=== PATIENT | female | born 1960 | race Caucasian/White ===

== ENCOUNTER 2017-12-09 06:28 | Day surgery (SDC) | payer OTHER ==
[2017-12-09] MEDS ORDERED: fentaNYL 100 MCG/2 ML SDV ONE (07:20)
[2017-12-09] MEDS ORDERED: Midazolam 1 MG/ML 2 ML SDV ONE (07:20)
[2017-12-09] MEDS ORDERED: Propofol 200 MG/20 ML SDV ONE (07:21)
[2017-12-09] MEDS: Lactated Ringers 1,000 ML IV SCH (07:21)
[2017-12-09 09:11] VITALS: BP 116/78
--- NOTE | 2017-12-09 16:08 | OR ---
DATE OF PROCEDURE: 12/09/2017 PROCEDURE: Colonoscopy. FINDINGS: Normal colonoscopy. PREOPERATIVE DIAGNOSIS: Screening colonoscopy. POSTOPERATIVE DIAGNOSIS: Screening colonoscopy. RISKS: Risks, benefits, alternatives, and limitations including, but not limited to infection, bleeding, and perforation were explained to the patient, and she wished to proceed. PROCEDURE IN DETAIL: The patient was placed in the left lateral decubitus position. Digital rectal exam was performed without abnormality. A very mild external hemorrhoid was noted. The scope was introduced and advanced atraumatically to the ileocecal valve. The scope was brought back through the ascending, transverse, descending colon, and retroflexed. No evidence of old or new blood. No masses. No polyps. No diverticulosis. No colitis. No abnormalities on retroflex. The patient's prep was acceptable, seeing approximately 90% of the luminal surface. The patient tolerated the procedure well. Clarence Simons MD /[id number]
== END 2017-12-09 09:05 | disposition home or self-care (01) ==
LOC: JP.SDS 06:28
PROVIDERS: ATTEND Surgery
DX: Z12.11 Encounter for screening for malignant neoplasm of colon (principal); K64.4 Residual hemorrhoidal skin tags; I34.1 Nonrheumatic mitral (valve) prolapse; I10 Essential (primary) hypertension; F41.9 Anxiety disorder, unspecified; E04.9 Nontoxic goiter, unspecified; E66.9 Obesity, unspecified; Z88.2 Allergy status to sulfonamides; Z88.5 Allergy status to narcotic agent; Z98.1 Arthrodesis status
CPT/HCPCS: J2250; J2704; J3010; J7120

== ENCOUNTER 2018-01-05 11:16 | Emergency (ER) | payer OTHER ==
[2018-01-05 12:30] VITALS: BP 147/77
--- NOTE | 2018-01-05 13:17 | EDM.PDOC ---
ED HPI GENERAL MEDICAL PROBLEM - General Chief Complaint: Lower Extremity Injury/Pain Stated Complaint: DVT DIAGNOSED ON , ISSUES Time Seen by Provider: 01/05/18 12:34 Source of Information: Reports: Patient History Limitations: Reports: No Limitations - History of Present Illness INITIAL COMMENTS - FREE TEXT/NARRATIVE: 57 yo female presents to ER with right upper leg ecchymosis and pain. 1.5 weeks ago pt had steroid injection in right knee. She then flew to [place]. In [place] she developed pain and swelling in her right leg. She flew home, and was seen in [place] ER dx with DVT started on Xarelto. Was seen in clinic ealier thsi week with a normal HGB. bruising to right posterior thigh has worsened over the last 24 hours with increase in fatigue and pain. Denies headache, fever, chills, SOB, cough, or CP. - Related Data Allergies Allergy/AdvReac Type Severity Reaction Status Date / Time morphine Allergy Severe Anaphylactic Verified 01/05/18 12:40 Shock oxycodone Allergy Cannot Verified 01/05/18 12:40 Remember Sulfa (Sulfonamide Allergy Rash Verified 01/05/18 12:40 Antibiotics) Home Meds: Home Meds Acetaminophen 1,000 mg PO TID 12/05/17 [History] Aspirin [Adult Low Dose Aspirin EC] 81 mg PO DAILY 12/05/17 [History] Cholecalciferol (Vitamin D3) [Vitamin D3] 5,000 unit PO DAILY 12/05/17 [History] Cyclobenzaprine HCl 5 mg PO DAILY 12/05/17 [History] Estradiol [Pepper] 0.025 mg TRDERM .TWICE WEEKLY 12/05/17 [History] Hydroxychloroquine [Plaquenil] 200 mg PO BID 12/05/17 [History] Multivitamin with Minerals [Multiple Vitamin] 1 tab PO DAILY 12/05/17 [History] [place]-3/DHA/Epa/Fish Oil [Fish Oil 1,000 mg Softgel] 1,000 mg PO TID 12/05/17 [ History] Sertraline [Zoloft] 50 mg PO DAILY 12/05/17 [History] Spironolactone 50 mg PO BID 12/05/17 [History] Tofacitinib Citrate [Xeljanz Xr] 11 mg PO DAILY 12/05/17 [History] traMADol [Ultram] 50 mg PO DAILY PRN 12/05/17 [History] Rivaroxaban [Xarelto] 1 tab PO BID 01/05/18 [History] Past Medical History HEENT History: Reports: Impaired Vision Other HEENT History: wears glasses Other Cardiovascular History: idiopathic edema Respiratory History: Reports: Other (See Below) Other Respiratory History: 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 Gastrointestinal History: Reports: Colon Polyp 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: Reports: 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 Musculoskeletal History: Reports: RA Other Musculoskeletal History: fused right ankle Psychiatric History: Reports: Anxiety - Infectious Disease History Infectious Disease History: Reports: Chicken Pox, Measles, Mumps, Rubella - Past Surgical History HEENT Surgical History: Reports: Oral Surgery, Tonsillectomy Other HEENT Surgeries/Procedures: wisdom teeth Respiratory Surgical History: Reports: Lung Biopsies GI Surgical History: Reports: Colonoscopy Female Surgical History: Reports: Hysterectomy Neurological Surgical History: Reports: C-Spine Social & Family History - Family History Family Medical History: Noncontributory - Tobacco Use Smoking Status *Q: Never Smoker - Caffeine Use Caffeine Use: Reports: Coffee - Living Situation & Occupation Living situation: Reports: , with Spouse Occupation: Employed Review of Systems - Review of Systems Review Of Systems: See Below Constitutional: Denies: Chills, Fever Respiratory: Denies: Shortness of Breath, Wheezing, Cough Cardiovascular: Reports: Edema. Denies: Chest Pain Genitourinary: Denies: Dysuria, Hematuria Musculoskeletal: Reports: Leg Pain ED EXAM, GENERAL - Physical Exam Exam: See Below Exam Limited By: No Limitations General Appearance: Alert, WD/WN, No Apparent Distress Head: Atraumatic, Normocephalic Respiratory/Chest: No Respiratory Distress, Lungs Clear, Normal Breath Sounds Cardiovascular: Regular Rate, Rhythm Peripheral Pulses: 2+: Posterior Tibial (L), Posterior Tibial (R) GI/Abdominal: Soft, Non-Tender Extremities: Other (severe ecchymosis of right posterior and medial upper leg just above knee) Course - Vital Signs Last Recorded V/S: Last Vital Signs Temp 36.5 C 01/05/18 12:48 Pulse 69 01/05/18 12:48 Resp 16 01/05/18 12:48 BP 147/77 H 01/05/18 12:48 Pulse Ox 99 01/05/18 12:48 - Orders/Labs/Meds Labs: Laboratory Tests 01/05/18 01/05/18 Range/Units 13:20 13:20 WBC 4.7 (4.5-11.0) K/uL RBC 4.14 (3.30-5.50) M/uL Hgb 13.1 (12.0-15.0) g/dL Hct 39.4 (36.0-48.0) % MCV 95 (80-98) fL MCH 32 H (27-31) pg MCHC 33 (32-36) % Plt Count 268 (150-400) K/uL Neut % (Auto) 74 H (36-66) % Lymph % (Auto) 16 L (24-44) % [place] % (Auto) 9 H (2-6) % Eos % (Auto) 1 L (2-4) % Baso % (Auto) 0 (0-1) % Sodium 141 (140-148) mmol/L Potassium 3.9 (3.6-5.2) mmol/L Chloride 102 (100-108) mmol/L Carbon Dioxide 30 (21-32) mmol/L Anion Gap 8.8 (5.0-14.0) mmol/L BUN 15 (7-18) mg/dL Creatinine 0.8 (0.6-1.0) mg/dL Est Cr Clr Drug Dosing 80.15 mL/min Estimated GFR (MDRD) > 60 (>60) Glucose 91 (74-106) mg/dL Calcium 9.0 (8.5-10.1) mg/dL Total Bilirubin 0.6 (0.2-1.0) mg/dL AST 20 (15-37) U/L ALT 44 (12-78) U/L Alkaline Phosphatase 58 (46-116) U/L Total Protein 7.3 (6.4-8.2) g/dL Albumin 4.1 (3.4-5.0) g/dL Globulin 3.2 (2.3-3.5) g/dL Albumin/Globulin Ratio 1.3 (1.2-2.2) - Re-Assessments/Exams Free Text/Narrative Re-Assessment/Exam: 01/05/18 14:44 HGB stable, kidneys and liver functioning normally. chronic level of inflammation, recent injection and anticoagulation increase risk of bruising. Departure - Departure Time of Disposition: 14:41 Disposition: Home, Self-Care 01 Clinical Impression: DVT of axillary vein, acute right - Discharge Information Instructions: Bleeding Precautions When on Anticoagulant Therapy, Adult Referrals: Keon Mcgill MD [Primary Care Provider] - Forms: ED Department Discharge Additional Instructions: activity as tolerated follow-up with primary care provider
== END 2018-01-05 14:47 | disposition home or self-care (01) ==
LOC: JP.ED 11:16
DX: I82.A11 Acute embolism and thrombosis of right axillary vein (principal); F41.9 Anxiety disorder, unspecified; Z79.899 Other long term (current) drug therapy; Z88.5 Allergy status to narcotic agent; Z88.2 Allergy status to sulfonamides; Z88.6 Allergy status to analgesic agent; Z79.82 Long term (current) use of aspirin
CPT/HCPCS: 36415; 80053; 85025; 99284

== ENCOUNTER 2018-04-25 12:37 | Day surgery (SDC) | payer OTHER ==
[2018-04-25] MEDS ORDERED: Lidocaine 1% with EPINEPHrine 1:100,000 50 ML MDV ONE (12:43)
[2018-04-25] MEDS ORDERED: Bupivacaine 0.5% 50 ML MDV ONE (12:43)
[2018-04-25] MEDS ORDERED: Lactated Ringers 1,000 ML IV SCH (12:43)
[2018-04-25] MEDS ORDERED: fentaNYL 100 MCG/2 ML SDV ONE (13:06)
[2018-04-25] MEDS ORDERED: Propofol 200 MG/20 ML SDV ONE (13:06)
[2018-04-25] MEDS ORDERED: Midazolam 1 MG/ML 2 ML SDV ONE (13:06)
[2018-04-25 14:41] VITALS: BP 128/80
--- NOTE | 2018-04-25 16:02 | OR ---
DATE OF PROCEDURE: 04/25/2018 PREOPERATIVE DIAGNOSES: 1. Thrombosed hemorrhoid. 2. Use of Xarelto. POSTOPERATIVE DIAGNOSES: 1. Thrombosed hemorrhoid. 2. Use of Xarelto. PROCEDURE PERFORMED: Excision and closure of thrombosed hemorrhoid. ANESTHESIA: IV anesthesia with monitored anesthesia care. INDICATION: This 57-year-old white female noted yesterday onset of a tender mass in the anal area. This became very bad last night and large. Today, it spontaneously opened and was bleeding. She was found to have a thrombosed hemorrhoid. She prefers to have this excised in the operating room under anesthesia. She is not constipated. I counseled her for the procedure including risks and alternatives, and she gave her informed consent to proceed. DESCRIPTION OF PROCEDURE: The patient was placed in gianni-knife position in the operating room. IV anesthesia was administered by the Anesthesia Service. Her anal and perianal areas and buttocks were prepped and draped in the usual sterile fashion. Time-out was held. Lidocaine 1% with epinephrine in a 50:50 mix with 0.5% Marcaine was infiltrated about the thrombosed hemorrhoid. Hemorrhoid was then excised using a radial elliptical incision and was sent to pathology. There was essentially no bleeding at this time. The incision was then closed with running locking stitch of 3-0 chromic. Sterile dressing was applied. She was placed supine and brought to the recovery room in a good condition having tolerated the procedure well. Nahid Lawrence MD /[id number]
== END 2018-04-25 15:00 | disposition home or self-care (01) ==
LOC: JP.SDS 12:37
PROVIDERS: ATTEND Surgery
DX: K64.5 Perianal venous thrombosis (principal); E66.9 Obesity, unspecified; Z86.718 Personal history of other venous thrombosis and embolism; Z79.01 Long term (current) use of anticoagulants; Z88.5 Allergy status to narcotic agent; Z88.2 Allergy status to sulfonamides
CPT/HCPCS: 46320; 88304; J2250; J2704; J3010; J3490; J7120

== ENCOUNTER 2020-01-30 18:51 | Emergency (ER) | payer OTHER ==
[2020-01-30] MEDS ORDERED: Sodium Chloride 0.9% 10 ML Syringe FLUSH PRN (19:39)
--- NOTE | 2020-01-30 19:41 | EDM.PDOC ---
ED HPI GENERAL MEDICAL PROBLEM - General Chief Complaint: Abdominal Pain Stated Complaint: ABD PAIN,DIARRHEA,FEVER Time Seen by Provider: 01/30/20 19:00 Source of Information: Reports: Patient, Old Records, RN History Limitations: Reports: No Limitations - History of Present Illness INITIAL COMMENTS - FREE TEXT/NARRATIVE: 59 yo female presents with LLQ abdominal pain and a concern about diverticulitis. Has a strong FHx of diverticulitis. Starting Saturday had some abdominal bloating and diffuse pain and diarrhea. Now the diarrhea is gone and she had fever today until coming to the ER. Pain is now more localized to the LLQ. She has no personal hx of diverticulitis. No bloody stool. No nausea. Has a pHx of RA and is on immunosuppressants for that. Onset: Gradual Onset Date: 01/27/20 Duration: Day(s):, Waxing/Waning Location: Reports: Abdomen Quality: Reports: Ache Severity: Moderate Improves with: Reports: Rest Worsens with: Reports: Movement Context: Reports: Other (See HPI) Associated Symptoms: Reports: Fever/Chills (today ). 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 - Related Data Allergies Allergy/AdvReac Type Severity Reaction Status Date / Time morphine Allergy Severe Anaphylactic Verified 01/30/20 19:09 Shock oxycodone Allergy Shortness Verified 01/30/20 19:09 of Breath Sulfa (Sulfonamide Allergy Rash Verified 01/30/20 19:09 Antibiotics) Home Meds: Home Meds Acetaminophen 1,000 mg PO TID 12/05/17 [History] Aspirin [Adult Low Dose Aspirin EC] 81 mg PO DAILY 12/05/17 [History] Cyclobenzaprine HCl 10 mg PO BEDTIME 12/05/17 [History] Hydroxychloroquine [Plaquenil] 200 mg PO BID 12/05/17 [History] Multivitamin with Minerals [Multiple Vitamin] 1 tab PO DAILY 12/05/17 [History] [place]-3/DHA/Epa/Fish Oil [Fish Oil 1,000 mg Softgel] 1,000 mg PO TID 12/05/17 [History] Sertraline [Zoloft] 50 mg PO DAILY 12/05/17 [History] Spironolactone 50 mg PO BID 12/05/17 [History] Baricitinib [Olumiant] 2 mg PO DAILY 01/30/20 [History] Past Medical History HEENT History: Reports: Impaired Vision Other HEENT History: wears glasses Cardiovascular History: Reports: Other (See Below) Other Cardiovascular History: idiopathic edema Respiratory History: Reports: Other (See Below) Other Respiratory History: grandulomas Gastrointestinal History: Reports: Colon Polyp, Hemorrhoids Genitourinary History: Reports: None 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, Musculoskeletal History: Reports: RA, Other (See Below) Other Musculoskeletal History: fused right ankle; right hip pain Neurological History: Reports: None Psychiatric History: Reports: Anxiety Hematologic History: Reports: Anticoagulation Therapy Immunologic History: Reports: Immunosuppression - Infectious Disease History Infectious Disease History: Reports: Chicken Pox, Measles, Mumps Other Infectious Disease History: staph infection in foot - Past Surgical History HEENT Surgical History: Reports: Oral Surgery, Tonsillectomy Other HEENT Surgeries/Procedures: wisdom teeth Cardiovascular Surgical History: Reports: None Respiratory Surgical History: Reports: Lung Biopsies Other Respiratory Surgeries/Procedures: mediastonoscopy GI Surgical History: Reports: Colonoscopy Female Surgical History: Reports: Hysterectomy Neurological Surgical History: Reports: C-Spine Musculoskeletal Surgical History: Reports: Other (See Below) Other Musculoskeletal Surgeries/Procedures:: right ankle surgery Social & Family History - Family History Family Medical History: Noncontributory Cardiac: Reports: Afib, Blood Clots/VTE/DVT, Hypertension, Other (See Below) Other Cardiac Family History: garrett filter Respiratory: Reports: Asthma, PE Musculoskeletal: Reports: Arthritis Neurological: Reports: CVA Endocrine/Metabolic: Reports: Diabetes, type II Hematologic: Reports: Hemochromatosis - Tobacco Use Smoking Status *Q: Never Smoker - Caffeine Use Caffeine Use: Reports: None - Recreational Drug Use Recreational Drug Use: No - Living Situation & Occupation Living situation: Reports: , with Spouse Occupation: Employed ED ROS GENERAL - Review of Systems Review Of Systems: See Below Constitutional: Reports: Fever, Malaise HEENT: Reports: No Symptoms Respiratory: Reports: No Symptoms Cardiovascular: Reports: No Symptoms GI/Abdominal: Reports: Abdominal Pain, Diarrhea (gone today), Distension (mild). Denies: Melena, Nausea, Vomiting : Reports: No Symptoms Musculoskeletal: Reports: No Symptoms Skin: Reports: No Symptoms Neurological: Reports: No Symptoms ED EXAM, GI/ABD - Physical Exam Exam: See Below Exam Limited By: No Limitations General Appearance: Alert, WD/WN, No Apparent Distress, Obese Eyes: Bilateral: Normal Appearance Ears: Normal External Exam, Normal Canal, Hearing Grossly Normal, Normal TMs Nose: Normal Inspection, No Blood Throat/Mouth: Normal Inspection Head: Atraumatic, Normocephalic Neck: Normal Inspection Respiratory/Chest: No Respiratory Distress, Lungs Clear, Normal Breath Sounds, No Accessory Muscle Use Cardiovascular: Regular Rate, Rhythm, No Edema GI/Abdominal Exam: Normal Bowel Sounds, Soft, No Distention, Tender (LLQ). No: Non-Tender, Distended, Guarding, Rigid, Rebound, Hernia Back Exam: Normal Inspection. No: CVA Tenderness (R), CVA Tenderness (L) Extremities: Normal Inspection, Normal Range of Motion, Non-Tender, No Pedal Edema Neurological: Alert, Oriented, CN II-XII Intact, Normal Cognition, No Motor/Sensory Deficits Psychiatric: Normal Affect, Normal Mood Skin Exam: Warm, Dry, Intact, Normal Color, No Rash Course - Vital Signs Last Recorded V/S: Last Vital Signs Temp 36.6 C 01/30/20 21:30 Pulse 83 01/30/20 21:30 Resp 16 01/30/20 21:30 BP 128/78 01/30/20 21:30 Pulse Ox 99 01/30/20 21:30 - Orders/Labs/Meds Orders: Active Orders 24 hr Category Date Time Status Sodium Chloride 0.9% [Normal Saline] 80 ml Med 01/30/20 21:00 Active IV ASDIRECTED Sodium Chloride 0.9% [Saline Flush] Med 01/30/20 19:39 Active 10 ml FLUSH ASDIRECTED PRN metroNIDAZOLE/Normal Saline [Flagyl 500 MG in NS 100 ML Med 01/30/20 22:04 Active ] 500 mg Premix Bag 1 bag IV ONETIME Saline Lock Insert [OM.PC] Routine Oth 01/30/20 19:39 Ordered Medication Orders Sodium Chloride (Normal Saline) 80 mls @ 3.5 mls/sec IV ASDIRECTED CIRO Last Admin: 01/30/20 21:19 Dose: 3.5 mls/sec Documented by: APPLE Metronidazole 500 mg/ Premix 100 mls @ 100 mls/hr IV ONETIME ONE Stop: 01/30/20 23:03 Last Admin: 01/30/20 22:13 Dose: 100 mls/hr Documented by: ZULLY Sodium Chloride (Saline Flush) 10 ml FLUSH ASDIRECTED PRN PRN Reason: Keep Vein Open Labs: Laboratory Tests 01/30/20 01/30/20 Range/Units 19:40 19:40 WBC 8.8 (4.5-11.0) K/uL RBC 4.71 (3.30-5.50) M/uL Hgb 15.0 (12.0-15.0) g/dL Hct 44.1 (36.0-48.0) % MCV 94 (80-98) fL MCH 32 H (27-31) pg MCHC 34 (32-36) % Plt Count 249 (150-400) K/uL Sodium 140 (140-148) mmol/L Potassium 4.4 (3.6-5.2) mmol/L Chloride 103 (100-108) mmol/L Carbon Dioxide 27 (21-32) mmol/L Anion Gap 9.8 (5.0-14.0) mmol/L BUN 16 (7-18) mg/dL Creatinine 1.0 (0.6-1.0) mg/dL Est Cr Clr Drug Dosing 62.61 mL/min Estimated GFR (MDRD) 57 L (>60) Glucose 96 (74-106) mg/dL Calcium 8.9 (8.5-10.1) mg/dL Lactate Dehydrogenase 247 H (82-234) U/L C-Reactive Protein 8.08 H (0.0-0.3) mg/dL Meds: Medications Generic Name Dose Route Start Last Admin Trade Name Freq PRN Reason Stop Dose Admin Sodium Chloride 80 mls @ 3.5 mls/sec 01/30/20 21:00 01/30/20 21:19 Normal Saline IV 3.5 mls/sec ASDIRECTED CIRO Administration Metronidazole 500 mg/ Premix 100 mls @ 100 mls/hr 01/30/20 22:04 01/30/20 22:13 IV 01/30/20 23:03 100 mls/hr ONETIME ONE Administration Sodium Chloride 10 ml 01/30/20 19:39 Saline Flush FLUSH ASDIRECTED PRN Keep Vein Open Discontinued Medications Generic Name Dose Route Start Last Admin Trade Name Freq PRN Reason Stop Dose Admin Cephalexin 1,000 mg 01/30/20 22:06 01/30/20 22:13 Keflex PO 01/30/20 22:07 1,000 mg ONETIME ONE Administration Iopamidol 150 ml 01/30/20 20:52 01/30/20 21:19 Isovue-300 (61%) IV 01/30/20 20:53 150 ml ONETIME ONE Administration Sodium Chloride 10 ml 01/30/20 20:52 01/30/20 21:19 Saline Flush FLUSH 01/30/20 20:53 10 ml ONETIME ONE Administration - Radiology Interpretation Free Text/Narrative:: CT abd/pelvis with IV contrast-diverticulitis sigmoid colon. ? abscess vs other near L ovary. CT Results Date: 01/30/20 CT Results Time: 22:15 Departure - Departure Time of Disposition: 22:35 Disposition: Home, Self-Care 01 Condition: Fair Clinical Impression: Diverticulitis of sigmoid colon - Discharge Information *PRESCRIPTION DRUG MONITORING PROGRAM REVIEWED*: No *COPY OF PRESCRIPTION DRUG MONITORING REPORT IN PATIENT LEV: No Instructions: Diverticulitis, [id number] Referrals: Elana Forbes DO [Primary Care Provider] - Forms: ED Department Discharge Additional Instructions: Take metronidazole every 8 hrs until gone. Avoid alcohol when on this med. Take cephalexin every 8 hrs until gone. Recheck later this week with your primary to further work up your abnormal CT findings. Sepsis Event Note (ED) - Evaluation Sepsis Screening Result: Possible Sepsis Risk - Focused Exam Vital Signs: Vital Signs Temp Pulse Resp BP Pulse Ox 01/30/20 21:30 36.6 C 83 16 128/78 99 01/30/20 19:21 36.4 C 92 16 131/86 95 01/30/20 19:06 36.4 C 92 16 131/86 95 - My Orders Last 24 Hours: My Active Orders 01/30/20 19:39 Sodium Chloride 0.9% [Saline Flush] 10 ml FLUSH ASDIRECTED PRN Saline Lock Insert [OM.PC] Routine 01/30/20 21:00 Sodium Chloride 0.9% [Normal Saline] 80 ml IV ASDIRECTED 01/30/20 22:04 metroNIDAZOLE/Normal Saline [Flagyl 500 MG in NS 100 ML] 500 mg Premix Bag 1 bag IV ONETIME - Assessment/Plan Last 24 Hours: My Active Orders 01/30/20 19:39 Sodium Chloride 0.9% [Saline Flush] 10 ml FLUSH ASDIRECTED PRN Saline Lock Insert [OM.PC] Routine 01/30/20 21:00 Sodium Chloride 0.9% [Normal Saline] 80 ml IV ASDIRECTED 01/30/20 22:04 metroNIDAZOLE/Normal Saline [Flagyl 500 MG in NS 100 ML] 500 mg Premix Bag 1 bag IV ONETIME
[2020-01-30] MEDS ORDERED: Sodium Chloride 0.9% 10 ML Syringe FLUSH ONE (20:52)
[2020-01-30] MEDS ORDERED: Iopamidol 612 MG/ML 500 ML Multipack Bottle IV ONE (20:52)
[2020-01-30] MEDS ORDERED: Sodium Chloride 0.9% 80 ML IV SCH (21:00)
[2020-01-30 21:31] VITALS: BP 128/78; PULSE 83
--- NOTE | 2020-01-30 21:52 | CRLCT ---
INDICATION: Left lower quadrant pain. TECHNIQUE: CT abdomen and pelvis performed after IV injection of 150 mL of Isovue-300. FINDINGS: Degenerative disc disease L5 interspace. Mild atelectasis or fibrosis and lung bases. Small bone islands in the skeleton. Moderately distended gallbladder which is otherwise normal. Hysterectomy. Small amount of free fluid in the pelvis posteriorly. Moderate wall thickening involving a 9 cm segment of the mid and proximal sigmoid colon with luminal narrowing and surrounding inflammatory stranding consistent with a moderate case of acute diverticulitis. Fluid and stranding extends into the left adnexal region where there is an enhancing density with central fluid density measuring approximately 3.7 cm superior to the affected segment of sigmoid colon. This could be related to phlegmonous change within the left adnexa. If the left ovary is still present this could be within the left ovary or adjacent to it. Cannot exclude a left adnexal abscess related to the diverticulitis. Diagnostic consideration would be a cystic and enhancing lesion in the left ovary if the left ovary is still present. Abscess should be excluded. Colonic diverticulosis specially in the left colon. Appendix normal. Remainder negative. IMPRESSION: 1. CT findings consistent with a moderate case of acute diverticulitis involving the mid sigmoid colon with free fluid in the pelvis posteriorly likely related to the diverticulitis as well as a 3-4 cm enhancing and cystic phlegmonous density in the left adnexal region which is likely related to the diverticulitis and could be an abscess in the left adnexa and/or ovary. If the ovary is still present, the differential consideration would be an indeterminate lesion in the left adnexa/ovary other than an abscess. Other findings as above Please note that all CT scans at this facility use dose modulation, iterative reconstruction, and/or weight-based dosing when appropriate to reduce radiation dose to as low as reasonably achievable. Dictated by Misael Torres MD @ Jan 30 2020 9:37PM Signed by Dr. Misael Torres @ Jan 30 2020 9:51PM
[2020-01-30] MEDS ORDERED: metroNIDAZOLE/Normal Saline 500 MG in Premix Bag 1 BAG IV ONE (22:04)
[2020-01-30] MEDS ORDERED: Cephalexin 250 MG Cap PO ONE (22:06)
== END 2020-01-30 23:25 | disposition home or self-care (01) ==
LOC: JP.ED 18:51
DX: K57.32 Diverticulitis of large intestine without perforation or abscess without bleeding (principal); F41.9 Anxiety disorder, unspecified; M06.9 Rheumatoid arthritis, unspecified; Z88.5 Allergy status to narcotic agent; Z88.2 Allergy status to sulfonamides; Z79.82 Long term (current) use of aspirin; Z79.899 Other long term (current) drug therapy
CPT/HCPCS: 36415; 74177; 80048; 83615; 85027; 86140; 96365; 99284; A9270; J3490; J7050; Q9967